=== PATIENT | male | born 1935 | race Caucasian/White ===

== ENCOUNTER → 2017-01-22 | Outpatient (CLI) | payer OTHER, BC ==
[~2017-01-22] MED LIST: ACETAMINOPHEN-1 EAC1 PO; DOXYCYCLINE 10100 MG PO; KEFLEX500 MG PO; VICODIN 5-5001 EACH PO
== END ==
LOC: HYPER 01-17 10:00
DX: T24.331A Burn of third degree of right lower leg, initial encounter (principal); T24.332A Burn of third degree of left lower leg, initial encounter; L03.115 Cellulitis of right lower limb; I10 Essential (primary) hypertension; I48.91 Unspecified atrial fibrillation; Z95.1 Presence of aortocoronary bypass graft; Z72.89 Other problems related to lifestyle; X08.8XXA Exposure to other specified smoke, fire and flames, initial encounter; Y93.89 Activity, other specified; Y92.89 Other specified places as the place of occurrence of the external cause; Y99.8 Other external cause status

== ENCOUNTER → 2017-01-24 | Outpatient (CLI) | payer OTHER, BC | LOC: HYPER 07:08 | DX: S81.801A Unspecified open wound, right lower leg, initial encounter (principal); T24.302D Burn of third degree of unspecified site of left lower limb, except ankle and foot, subsequent encounter; I10 Essential (primary) hypertension; I48.91 Unspecified atrial fibrillation; X58.XXXA Exposure to other specified factors, initial encounter; Y93.89 Activity, other specified; Y92.89 Other specified places as the place of occurrence of the external cause; Y99.8 Other external cause status; T31.0 Burns involving less than 10% of body surface; X08.8XXD Exposure to other specified smoke, fire and flames, subsequent encounter; Z72.89 Other problems related to lifestyle ==

== ENCOUNTER → 2017-02-01 | Outpatient (CLI) | payer OTHER, BC | LOC: HYPER 08:11 | DX: T24.332D Burn of third degree of left lower leg, subsequent encounter (principal); L03.115 Cellulitis of right lower limb; I10 Essential (primary) hypertension; I48.91 Unspecified atrial fibrillation; Z72.89 Other problems related to lifestyle; Z95.1 Presence of aortocoronary bypass graft; X08.8XXD Exposure to other specified smoke, fire and flames, subsequent encounter ==

== ENCOUNTER → 2017-02-18 | Outpatient (CLI) | payer OTHER, BC | LOC: HYPER 07:01 | DX: T24.331D Burn of third degree of right lower leg, subsequent encounter (principal); L03.115 Cellulitis of right lower limb; I10 Essential (primary) hypertension; I48.91 Unspecified atrial fibrillation; Z95.1 Presence of aortocoronary bypass graft; Z72.89 Other problems related to lifestyle; X08.8XXD Exposure to other specified smoke, fire and flames, subsequent encounter ==

== ENCOUNTER → 2017-03-04 | Outpatient (CLI) | payer OTHER, BC | LOC: HYPER 06:59 | DX: T24.331D Burn of third degree of right lower leg, subsequent encounter (principal); T31.0 Burns involving less than 10% of body surface; I10 Essential (primary) hypertension; I48.91 Unspecified atrial fibrillation; Z95.1 Presence of aortocoronary bypass graft; Z96.642 Presence of left artificial hip joint; Z72.89 Other problems related to lifestyle; X08.8XXD Exposure to other specified smoke, fire and flames, subsequent encounter ==